=== PATIENT | male | born 1955 | race Caucasian/White ===

== ENCOUNTER 2020-06-21 06:27 | Day surgery (SDC) | payer OTHER, SELFPAY ==
--- NOTE | 2020-06-21 07:19 | P.CONAN_ITS ---
[facility] Past Medical History Medical History (Updated 06/17/20 @ 11:47 by Grecia Childress) Glaucoma associated with ocular trauma High cholesterol Hypertension Surgical History Surgical History (Updated 06/17/20 @ 11:47 by Grecia Childress) S/P iridectomy Social History Social History Smoking Status: Former smoker Use of substances other than those prescribed or required for medical reasons: No Advance Directives: No Advance Directives Information Provided: Yes Meds Allergies Allergy/AdvReac Type Severity Reaction Status Date / Time No Known Allergies Allergy Unverified 06/18/20 08:13 Home Medications Medication Instructions Recorded Confirmed Type amlodipine 10 mg PO DAILY 06/17/20 History hydrochlorothiazide 25 mg PO DAILY 06/17/20 History lovastatin 60 mg PO BEDTIME 06/17/20 History Exam Exam Date and Time: June 21, 2020 0719 Airway Mallampati Class: III TM Dist: >3cm Neck ROM: Full Heart: RR R Lungs: CTA Assessment and Plan Assessment Anesthesia Assessment: Anesthesia Plan Discussed Final Anesthetic Review NPO: Yes ASA Class: III Final Preanesthetic Review: Meds/Allgs Chart Reviewed, Consent Obtained/Reviewed and Anes Risks/Benef Reviewed Patient Risk: Intermediate Procedure Risk: Intermediate Anesthetic Plan Anesthetic Plan: MAC: Disposition: Standard PACU
[2020-06-21 07:28] VITALS: BP 150/84; PULSE 70; RESP 20; TEMP 37.1; O2SAT 100
--- NOTE | 2020-06-21 08:49 | HO.PNOPH ---
Ophthalmology Procedure Procedure Ophthalmology Viscoelastic: Not Applicable Ophthalmology Lenses: Not Applicable
[2020-06-21 08:50] VITALS: BP 132/85; PULSE 80; RESP 16; TEMP 36.2; O2SAT 100
[2020-06-21 09:07] VITALS: BP 125/80; PULSE 74; RESP 18; TEMP 36.2; O2SAT 98
--- NOTE | 2020-06-21 10:42 | OP_ITS ---
SURGEON: Arturo Zamora MD PREOPERATIVE DIAGNOSIS: POSTOPERATIVE DIAGNOSIS: Dislocated intraocular lens from previous trauma as well as corneal erythema. PROCEDURE PERFORMED: Intraocular lens removal of left eye. ESTIMATED BLOOD LOSS: COMPLICATIONS: ANESTHESIA: MAC. ANESTHESIOLOGIST: Dr. Antonio.Dr. Antonio. ASSISTANTS: SPECIMENS: INDICATIONS FOR SURGERY: Dislocated intraocular lens from previous trauma as well as corneal erythema. DESCRIPTION OF PROCEDURE: After obtaining informed consent, the patient was brought to the operating suite and placed in supine position after being prepped and draped in the usual sterile fashion. The operating room microscope was positioned over the left eye where paracentesis was created with a 15-degree blade by placement of subconjunctival injection of lidocaine. Ronit scissors were then used to create a superior peritomy. A keratome was utilized to gain access into the scleral incision, which was widened to 6 mm. The IOL was grasped with intraocular lens forceps and removed from anterior chamber. Viscoat was placed to maintain the anterior chamber. 9-0 nylon was then utilized to suture the cornea wound closed, five interrupted sutures, 6-0 Vicryl was then utilized to close the conjunctiva. Intracameral Vigamox was given followed by Subtenon injection of Kenalog. The patient tolerated the procedure and will be seen in followup. MD ANTHONY Ashraf/MODL / [id number]
== END 2020-06-21 09:35 | disposition home or self-care (01) ==
PROVIDERS: Ophthalmology; PCP Pediatrics; Visit Provider Anesthesiology
PROC: (CPT 65920; principal; 2020-06-21 07:30)
DX: T85.22XA Displacement of intraocular lens, initial encounter (principal); Y77.8 Miscellaneous ophthalmic devices associated with adverse incidents, not elsewhere classified; Y92.9 Unspecified place or not applicable; H40.3 Glaucoma secondary to eye trauma; I10 Essential (primary) hypertension; E78.00 Pure hypercholesterolemia, unspecified; Z87.891 Personal history of nicotine dependence
CPT/HCPCS: 65920; 88300; J2250; J3010; J3300